=== PATIENT | female | born 1940 | race Caucasian/White ===

== ENCOUNTER 2016-08-09 10:25 | Outpatient (CLI) | payer OTHER ==
--- NOTE | 2016-08-09 12:02 | DIAGNOSTIC IMAGING REPORT ---
PROCEDURE: US ART LOWER EXT WITH DINORAH-B/L INDICATION: PERIPHERAL NEUROPATHY, R/O PAD TECHNIQUE: Preexercise ABIs were performed. The patient was exercised ( 50 toe-ups) and postexercise ABIs were repeated followed by color Doppler duplex imaging of the lower extremities. COMPARISON: None. FINDINGS: Cardiac arrhythmia. RIGHT LOWER EXTREMITY: ABIs: Resting ABIs: Posterior tibial 1.1 and dorsalis pedis 1.2. Post exercise ABIs: Posterior tibial and dorsalis pedis both 0.8. VESSELS: Minimal plaque formation. Biphasic to triphasic wave form from the external iliac artery to the distal SFA with triphasic wave form of the popliteal and posterior tibial artery. There is biphasic wave form of the anterior tibial and dorsalis pedis artery. RIGHT LOWER EXTREMITY PEAK SYSTOLIC VELOCITIES: External iliac: 160 cm/second. Common femoral artery: 189 cm/second. Profunda femoral artery: 119 cm/second. Proximal superficial femoral artery: 126 cm/second. Mid superficial femoral artery: 126 cm/second. Distal superficial femoral artery: 129 cm/second. Popliteal artery: 106 cm/second. Proximal posterior tibial artery: 91 cm/second. Proximal anterior tibial artery: 64 cm/second. Distal posterior tibial artery: 104 cm/second. Dorsalis pedis artery: 63 cm/second. LEFT LOWER EXTREMITY: ABIs: Resting ABIs: Posterior tibial 1.2 and dorsalis pedis 1.1. Post exercise ABIs: Posterior tibial 1.0 and dorsalis pedis 0.9. VESSELS: Mild atherosclerosis.. Biphasic and triphasic wave form from the external iliac artery to the proximal SFA. Triphasic wave form the mid SFA to the popliteal artery. Monophasic wave form of the proximal posterior tibial artery and anterior tibial artery with biphasic wave form of the distal posterior tibial and dorsalis pedis arteries. LEFT LOWER EXTREMITY PEAK SYSTOLIC VELOCITIES: External iliac: 156 cm/second. Common femoral artery: 193 cm/second. Profunda femoral artery: 88 cm/second. Proximal superficial femoral artery: 124 cm/second. Mid superficial femoral artery: 134 cm/second. Distal superficial femoral artery: 125 cm/second. Popliteal artery: 72 cm/second. Proximal posterior tibial artery: 103 cm/second. Proximal anterior tibial artery: 26 cm/second. Distal posterior tibial artery: 88 cm/second. Dorsalis pedis artery: 86 cm/second. IMPRESSION: 1. Cardiac arrhythmia 2. Right lower extremity: No evidence of resting arterial insufficiency. There is mild postexercise arterial insufficiency. Mild atherosclerosis but no focal stenoses 3. Left lower extremity: No evidence of resting arterial insufficiency. There is mild postexercise arterial insufficiency. Mild atherosclerosis with high-grade stenosis of the anterior tibial/dorsalis pedis artery.
== END 2016-08-09 23:00 ==
LOC: US SRH 10:25
DX: I49.9 Cardiac arrhythmia, unspecified (principal)

== ENCOUNTER 2016-08-18 10:17 | Outpatient (CLI) | payer OTHER | END 2016-08-18 23:00 | disposition home or self-care (01) | LOC: RT SRH 10:17 | PROC: 4A12X45 Monitoring of Cardiac Electrical Activity, Ambulatory, External Approach (ICD-10-PCS; principal; 2016-08-18) | DX: I10 Essential (primary) hypertension (principal); R00.2 Palpitations ==